=== PATIENT | male | born 1950 | race African-American/Black ===

== ENCOUNTER → 2017-11-15 | Outpatient (CLI) | payer MEDICARE | LOC: CAT 11-12 09:48 | DX: R42 Dizziness and giddiness (principal); R53.1 Weakness ==

== ENCOUNTER 2018-01-01 09:54 | Outpatient (CLI) | payer MEDICARE ==
[~2018-01-01] VITALS: Ht 172.7 cm; Wt 76.9 kg
--- NOTE | ~2018-01-01 | CATHLAB ---
[facility] [place] [address] INVASIVE PROCEDURE REPORT Name: ALLAN LEÓN Room #: 200-I REG [facility]#: [id number] Admission: 01/01/18 Attend Phys: Eliud Clark MD Discharge: Date of : 46 Date of Service: 01/01/18 1612 Report #: [id number] THIS REPORT FOR: //name// APPROVED REPORT Study performed: 01/01/2018 10:20:45 Patient Details Patient Status: Out-Patient Room #: The patient is a 67 year-old male Event Personnel Eliud Clark Radio Installer Automobile, Vinayak Phipps RN, Elizabeth Piedra Sandifer, David Monitor Procedures Performed Left Heart Cath w/or w/o Coronaries [id number] [facility] [address] Place w/wo Plasty Single RCA [id number] Indication Dizziness and vertigo, Dyspnea, Syncope, Positive stress test Risk Factors Hypercholesterolemia, Hypertension Procedure Narrative The Right Groin^ was infiltrated with 1% Lidocaine subcutaneous anesthesia. A PINNACLE 4FR Sheath #[id number] sheath was inserted into the RFA^. Coronary angiography was performed using coronary diagnostic catheters. The right coronary system was accessed and visualized with a JR4 catheter. The left coronary system was accessed and visualized with a JL4 catheter. The left ventricle was accessed and visualized with a PIGTAIL catheter. Left ventricular/Aortic Valve gradient assessed via catheter pullback. Closure device was deployed with a 6 Fr MYNXGRIP 6/7F #[id number]. The patient tolerated the procedure well and there were no complications associated with the procedure. Intraoperative Conscious Sedation Sedation start time: 12.11 Case end Time: 12.44 Fentanyl 50 mcg Versed 1.5 mg Fluoro Time: 8.18 minutes Dose: DAP 6998. cGycm2 876 mGy [facility] [place] [address] INVASIVE PROCEDURE REPORT Name: ALLAN LEÓN Room #: 200-I [facility]#: [id number] Admission: 01/01/18 Attend Phys: Eliud Clark MD Discharge: Date of : 46 Date of Service: 01/01/18 1612 Report #: [id number] Contrast Type and Amount: Omnipaque 185 ml Coronary Angiography The patient's coronary anatomy is right dominant. Diagnostic Cath Left Main Patent vessel, with no flow-limiting lesions. LAD There is mild in the proximal segment. There is 70% stenosis in the mid segment, at the takeoff of the second diagonal artery. Diagonal 1 Moderate size caliber vessel, with no flow-limiting lesions. Diagonal 2 Moderate size caliber vessel, with no flow-limiting lesions. Circumflex Supply 3 OM vessels. There is mild disease in the proximal segment. OM1 Small-caliber vessel, with mild disease proximally. OM2 Patent vessel, with no flow-limiting lesions. OM3 Patent vessel, with no flow-limiting lesions. Right Coronary Moderate size caliber vessel, dominant. There is a severe stenosis in the distal segment, 95%. R PDA Moderate size caliber vessel, patent with no flow-limiting lesions. RPLV Moderate size caliber vessel, patent with no flow-limiting lesions. Left Ventriculography The left ventricle is normal in size with normal contractility. The left ventricular ejection fraction is estimated to be >55%. Hemodynamics The aortic pressure is 145/77 mmHg with a mean of 94 mmHg. The left ventricular pressure is 155/12 mmHg with a mean of mmHg. The left ventricular end diastolic pressure is 29 mmHg. There was no gradient across the aortic valve upon pullback. Pullback from the left ventricle to the aorta revealed no gradient across the aortic valve. PCI Technique Lesion Anticoagulation was achieved with Angiomax. Patient was preloaded with Brillinta. Percutaneous coronary intervention was performed on the distal right coronary artery. The lesion stenosis prior to intervention was 95% with RAMYA 3 flow. A LAUNCHER 6FR JR 4 #[id number] Guide Catheter was used to engage the ostium. A Luge Wire .014 x 182CM #[id number] Interventional Guidewire was used to cross the [facility] [address] [place] [address] INVASIVE PROCEDURE REPORT Name: ALLAN LEÓN Room #: 200-I REG [facility]#: [id number] Admission: 01/01/18 Attend Phys: Eliud Clark MD Discharge: Date of : 46 Date of Service: 01/01/18 1612 Report #: [id number] lesion. BALLOON DILATION A Balloon catheter Euphora RX 2.5 x 12 #[id number] was inserted and inflated up to 8.00atm for 20seconds. STENT DEPLOYMENT A drug-eluting stent RESOLUTE RX 3.0 X 15 #[id number] was inserted and inflated up to 18.00atm for 24seconds. POST STENT DEPLOYMENT BALLOON DILATION A Balloon catheter Euphora NC RX 3.25 x 12 #[id number] was inserted and inflated up to 18.00atm for 20seconds. Final angiography reveals 0 % stenosis with RAMYA 3 flow. Conclusion 1. Successful insertion of a drug-eluting stent into the severe stenosis in the distal RCA. 2. Moderate to severe stenosis in the mid LAD, recommend medical therapy versus staged angioplasty. 3. Normal LV systolic function. 4. Recommend dual platelet therapy and aggressive risk factor management. <ELECTRONICALLY SIGNED> By: Eliud Clark MD 01/01/181611 11 11 Eliud Clark MD /INF
--- NOTE | ~2018-01-01 | D ---
[facility] [place] [address] DISCHARGE SUMMARY Name: ALLAN LEÓN Room #: 200-I [facility] Kwasi.#: [id number] Admission: 01/01/18 Attend Phys: Eliud Clark MD Discharge: Date of : 46 Report #: [id number] THIS REPORT FOR: //name// CC: Eliud Jung DATE OF SERVICE: 01/02/2018 FINAL DIAGNOSES: 1. Coronary artery disease, status post percutaneous coronary intervention. 2. Syncope. 3. Supraventricular tachycardia. 4. Hypertension. 5. Hypercholesterolemia. 6. Gastroesophageal reflux disease. HOSPITAL COURSE: Please see the original H and P for full details. The patient presented with complaints of dyspnea and syncope. A cardiac evaluation revealed SVT and abnormal nuclear stress test. Please see the cardiac catheterization report for full details. On the stress test, he had inferior wall ischemia. Angiography revealed severe occlusion in the distal RCA, supplying a moderate size PDA and posterior lateral branch. Angioplasty was performed with placement of a drug-eluting stent. There is also a 70% stenosis in the mid LAD, recommend medical therapy versus stage angioplasty. He has remained stable overnight. He denies any episodes of chest pains, dyspnea or lightheadedness. He will be discharged home on aspirin, Plavix 75 mg daily, Lipitor 40 mg, lisinopril, Toprol XL 25 mg. He is given instructions for followup in the office. By: 0827 0959 Eliud Clark MD /joseph
--- NOTE | ~2018-01-01 | EKG ---
[place] [address] [address] [place] [address] ELECTROCARDIOGRAM REPORT Name: ALLAN LEÓN Room #: 200-I [facility].#: [id number] Admission: 01/01/18 Attend Phys: Eliud Clark MD Discharge: Date of : 46 Report #: [id number] THIS REPORT FOR: //name// [facility] Test Date: 2018-01-01 Test Time: 13:44:23 Pat Name: ALLAN LEÓN Department: Room: Gender: Communications Department Chair: JOSÉ : 1950 Requested By: Eliud Clark Order Number: [id number] MD: Chidi Howard Measurements Intervals [place] Rate: 46 P: -1 SC: 181 QRS: 21 QRSD: 98 T: 14 QT: 441 QTc: 386 Interpretive Statements Sinus bradycardia Otherwise no significant abnormality No previous ECG available for comparison Electronically Signed On 01-01-2018 15:44:56 CDT by Chidi Howard [email or web address] <ELECTRONICALLY SIGNED> By: Chidi Howard MD, [facility] 01/01/18 1544 1344 1344 Chidi Howard MD, FACC /EPI
--- NOTE | ~2018-01-01 | EKG ---
[address] [place] [address] ELECTROCARDIOGRAM REPORT Name: ALLAN LEÓN Room #: 200-I [facility] M.R.#: [id number] Admission: 01/01/18 Attend Phys: Eliud Clark MD Discharge: Date of : 46 Report #: [id number] THIS REPORT FOR: //name// [facility] Test Date: 2018-01-02 Test Time: 06:00:41 Pat Name: ALLAN LEÓN Department: Room: 200 I Gender: M Booking Agent: TABBY : 1950 Requested By: Eliud Clark Order Number: [id number] MD: Chidi Howard Measurements Intervals [place] Rate: 55 P: 17 [place]: 194 QRS: 38 QRSD: 85 T: 13 QT: 420 QTc: 402 Interpretive Statements Sinus bradycardia Otherwise normal tracing Compared to ECG 01/01/2018 13:44:23 No significant change was found Electronically Signed On 01-02-2018 8:02:22 CDT by Chidi Howard [email or web address] <ELECTRONICALLY SIGNED> By: Chidi Howard MD, [facility] 01/02/18 0802 06 9 Chidi Howard MD, FACC /EPI
[2018-01-01] MEDS ORDERED: ALLOPURINOL 10100 M1 PO (10:30)
[2018-01-01] MEDS ORDERED: TOPROL XL25 MG PO (10:31)
[2018-01-01] MEDS ORDERED: PREVACID15 MG PO (10:31)
[2018-01-01] MEDS ORDERED: LISINOPRIL10 MG PO (10:32)
[2018-01-01] MEDS ORDERED: ASPIR 8181 MG PO (10:32)
[2018-01-01 10:41] VITALS: BP 146/72
[2018-01-01 10:43] LABS: HEMATOCRIT 37.7 % (42.0-52.0); HEMOGLOBIN 12.9 gm/dL (14.0-18.0); MCH 31.7 pg (26.0-34.0); MCHC 34.2 g/dL (28.0-37.0); MCV 92.8 fL (80.0-100.0); RBC 4.06 mil/uL (4.50-6.00); RDW 14.1 % (10.5-14.5); WBC 4.5 thou/uL (4.0-11.0)
[2018-01-01 10:54] LABS: CALCIUM 9.1 mg/dL (8.5-10.1); CREATININE 1.2 mg/dL (0.7-1.3); POTASSIUM 3.7 mmol/L (3.5-5.1)
[2018-01-01 13:20] VITALS: BP 174/81
[2018-01-01 19:10] VITALS: BP 131/84
[2018-01-01 22:55] VITALS: BP 130/79
[2018-01-02 02:50] LABS: HEMATOCRIT 33.2 % (42.0-52.0); HEMOGLOBIN 11.7 gm/dL (14.0-18.0); MCH 32.3 pg (26.0-34.0); MCHC 35.1 g/dL (28.0-37.0); MCV 92.1 fL (80.0-100.0); RBC 3.61 mil/uL (4.50-6.00); RDW 13.8 % (10.5-14.5)
[2018-01-02 03:03] LABS: ALBUMIN 2.6 g/dL (3.4-5.0); CALCIUM 8.1 mg/dL (8.5-10.1); CREATININE 1.1 mg/dL (0.7-1.3); POTASSIUM 3.4 mmol/L (3.5-5.1); TOTAL BILIRUBIN 0.6 mg/dL (<0.1-1.0); TOTAL PROTEIN 5.8 g/dL (6.4-8.2); TROPONIN-I 0.08 ng/mL (<0.06)
[2018-01-02 03:58] VITALS: BP 161/91
[2018-01-02 07:04] VITALS: BP 139/70
[2018-01-02] MEDS ORDERED: CLOPIDOGREL75 MG PO (08:31)
[2018-01-02] MEDS ORDERED: ATORVASTATIN CA80 MG PO (08:31)
[2018-01-02 09:10] VITALS: BP 139/70
[2018-01-02 09:50] VITALS: BP 139/70
== END 2018-01-02 11:14 | disposition home or self-care (01) ==
LOC: CATH 09:54 → 2N 13:17 → ENTRNSPT 01-02 11:01 → EDTRNSPTSTS 01-02 11:02 → CATH 01-02 11:14
PROVIDERS: Internal Medicine Cardiovascular Disease
DX: I25.10 Atherosclerotic heart disease of native coronary artery without angina pectoris (principal); K21.9 Gastro-esophageal reflux disease without esophagitis; M10.9 Gout, unspecified; E78.4 Other hyperlipidemia; I10 Essential (primary) hypertension; Z92.3 Personal history of irradiation; Z85.46 Personal history of malignant neoplasm of prostate; Z79.899 Other long term (current) drug therapy; R94.39 Abnormal result of other cardiovascular function study
CPT/HCPCS: 10081

== ENCOUNTER 2018-02-06 08:07 | Observation (INO) | payer MEDICARE ==
[~2018-02-06] VITALS: Ht 170.2 cm; Wt 81.1 kg
--- NOTE | ~2018-02-06 | EKG ---
[place] [address] [address] [facility] [place] [address] ELECTROCARDIOGRAM REPORT Name: ALLAN LEÓN Room #: 201-P [facility] M.R.#: [id number] Admission: 02/06/18 Attend Phys: Eliud Clark MD Discharge: Date of : 46 Report #: [id number] THIS REPORT FOR: //name// [facility] Test Date: 2018-02-06 Test Time: 08:51:38 Pat Name: ALLAN LEÓN Department: Room: Gender: Addiction Professional: : 1950 Requested By: Eliud Clark Order Number: [id number] MD: Chidi Howard Measurements Intervals [place] Rate: 69 P: 44 [place]: 187 QRS: 18 QRSD: 91 T: 16 QT: 377 QTc: 404 Interpretive Statements Sinus rhythm No significant abnormality Compared to ECG 01/02/2018 06:00:41 Sinus bradycardia no longer present Electronically Signed On 02-06-2018 16:51:19 CDT by Chidi Howard [email or web address] <ELECTRONICALLY SIGNED> By: Chidi Howard MD, [facility] 02/06/18 1651 0851 0851 Chidi Howard MD, FACC /EPI
--- NOTE | ~2018-02-06 | EKG ---
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
--- NOTE | ~2018-02-06 | D ---
[facility] [place] [address] DISCHARGE SUMMARY Name: ALLAN LEÓN Room #: 201-P [facility] Lanza#: [id number] Admission: 02/06/18 Attend Phys: Eliud Clark MD Discharge: 02/07/18 Date of : 46 Report #: [id number] THIS REPORT FOR: //name// CC: Eliud Jung DATE OF SERVICE: 02/07/2018 FINAL DIAGNOSES: 1. Coronary artery disease, status post stent to the left anterior descending. 2. Hypertension. 3. Hyperlipidemia. 4. Edema. HOSPITAL COURSE: Please see the original H and P for full details. He initially presented with his anginal equivalent, lightheadedness, and near syncope with exertion. He underwent stent insertion to the RCA recently. He was found to have a severe occlusion of the mid LAD, a strategy of medical therapy was recommended. This vessel was a small to moderate size caliber and size. However, he had an episode of his anginal equivalent, lightheadedness, diaphoresis and fatigue while walking on his job. He had to rest for symptom relief. Please see the cardiac catheterization report for full details. The stent in the RCA is widely patent. He underwent placement of a 2.0 mm drug-eluting stent into the mid LAD occlusion. He remains clinically stable overnight. He will continue on aspirin, atorvastatin, Plavix 75 mg, lisinopril, metoprolol and Dyazide. He is instructed to follow up in the office in a few weeks. <ELECTRONICALLY SIGNED> By: Eliud Clark MD 02/10/18 0802 0816 0854 Eliud Clark MD /nt
--- NOTE | ~2018-02-06 | CATHLAB ---
[facility] [address] [place] [address] INVASIVE PROCEDURE REPORT Name: ALLAN LEÓN Room #: 201-P [facility] IN M.R.#: [id number] Admission: 02/06/18 Attend Phys: Eliud Clark MD Discharge: Date of : 46 Date of Service: 02/06/18 1134 Report #: [id number] THIS REPORT FOR: //name// APPROVED REPORT Study performed: 02/06/2018 09:28:47 Patient Details Patient Status: Out-Patient Room #: The patient is a 67 year-old male Event Personnel Eliud Clark Correctional Captain, Kody Erickson RN RN, Remedios Gurrola RN RN, Katelin Dickson Mahmood, Amber Scrub, David Morales Monitor Procedures Performed Coronary Angiography Only [id number] [facility] Place w/wo Plasty Single LAD 294604 Indication Dizziness and vertigo, Syncope, Anginal equivalent is lightheadedness, near syncope. Risk Factors Hypercholesterolemia, Coronary Artery DiseaseHypertension Previous Procedures/Diagnoses Previous PCI Procedure Narrative The Right Groin^ was infiltrated with 1% Lidocaine subcutaneous anesthesia. A PINNACLE 6FR Sheath #[id number] sheath was inserted into the RFA^. Coronary angiography was performed using coronary diagnostic catheters. The left coronary system was accessed and visualized with a JR4 catheter. Closure device was deployed with a 6 Fr MYNXGRIP 6/7F #[id number]. The patient tolerated the procedure well and there were no complications associated with the procedure. There was no hematoma. Intraoperative Conscious Sedation Sedation start time: 10.05 Case end Time: 10.55 Fentanyl 50 mcg Versed 1.5 mg [facility] [address] [place] [address] INVASIVE PROCEDURE REPORT Name: ALLAN LEÓN Room #: 201-P [facility]#: [id number] Admission: 02/06/18 Attend Phys: Eliud Clark MD Discharge: Date of : 46 Date of Service: 02/06/18 1134 Report #: [id number] Fluoro Time: 11.03 minutes Dose: DAP 8508 cGycm2 1271 mGy Contrast Type and Amount: Visipaque 200 ml Coronary Angiography The patient's coronary anatomy is right dominant. Diagnostic Cath LAD There is a severe occlusion in the mid segment of the LAD, 80%. Right Coronary The RCA is a dominant vessel. There is a patent stent in the distal RCA. Hemodynamics The aortic pressure is 104/55 mmHg with a mean of 72 mmHg. PCI Technique Lesion Anticoagulation was achieved with Angiomax. Patient was preloaded with Plavix. Percutaneous coronary intervention was performed on the mid left anterior descending artery segment. The lesion stenosis prior to intervention was 80% with RAMAY 3 flow. A Objective LogisticsTA 6FR XB 3.5 #542658 Guide Catheter was used to engage the ostium. A Luge Wire .014 x 182CM #[id number] Interventional Guidewire was used to cross the lesion. BALLOON DILATION A Balloon catheter Euphora RX 2.0 x12 #[id number] was inserted and inflated up to 8.00atm for 16seconds. Additional Inflation: 8.00atm for 11seconds. Additional Inflation: 8.00atm for 20seconds. STENT DEPLOYMENT A drug-eluting stent RESOLUTE NIKITA RX 2.0 X 15 # was inserted and inflated up to 14.00atm for 22seconds. POST STENT DEPLOYMENT BALLOON DILATION A Balloon catheter Euphora NC RX 2.25 x 6 #[id number] was inserted and inflated up to 14.00atm for 16seconds. Additional Inflation: 15.00atm for 21seconds. Final angiography reveals 5 % stenosis with RAMYA 3 flow. Conclusion 1. Successful insertion of a drug-eluting stent into the mid LAD stenosis. [facility] [address] [place] [address] INVASIVE PROCEDURE REPORT Name: ALLAN LEÓN Room #: 201-P [facility].#: [id number] Admission: 02/06/18 Attend Phys: Eliud Clark MD Discharge: Date of : 46 Date of Service: 02/06/18 1134 Report #: [id number] 2. Patent stent in the distal RCA. 3. Recommend dual antiplatelet therapy. <ELECTRONICALLY SIGNED> By: Eliud Clark MD 02/06/18 1134 1134 1134 Eliud Clark MD /INF
--- NOTE | ~2018-02-06 | EKG ---
[address] [address] ELECTROCARDIOGRAM REPORT Name: ALLAN LEÓN Room #: 201-P [facility] M.R.#: [id number] Admission: 02/06/18 Attend Phys: Eliud Clark MD Discharge: Date of : 46 Report #: [id number] THIS REPORT FOR: //name// 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: Galina RIVERA : 1950 Requested By: Eliud Clark Order Number: [id number] MD: Chidi Howard Measurements Intervals [place] Rate: 76 P: 56 [place]: 210 QRS: 5 QRSD: 94 T: 15 QT: 367 QTc: 413 Interpretive Statements Sinus rhythm No significant abnormality Compared to ECG 01/02/2018 06:00:41 No significant change was found Electronically Signed On 02-06-2018 16:58:54 CDT by Chidi Howard [email or web address] <ELECTRONICALLY SIGNED> By: Chidi Howard MD, [facility] 02/06/18 1658 1340 1340 Chidi Howard MD, FACC /EPI
[~2018-02-06 08:07] MED LIST: ALLOPURINOL 10100 M1 PO; ASPIR 8181 MG PO; ATORVASTATIN CA80 MG PO; CLOPIDOGREL75 MG PO; LISINOPRIL10 MG PO; PREVACID15 MG PO; TOPROL XL25 MG PO
[2018-02-06 08:37] VITALS: BP 124/61
[2018-02-06 08:55] LABS: HEMATOCRIT 38.6 % (42.0-52.0); HEMOGLOBIN 13.3 gm/dL (14.0-18.0); MCH 31.4 pg (26.0-34.0); MCHC 34.5 g/dL (28.0-37.0); MCV 91.2 fL (80.0-100.0); RBC 4.23 mil/uL (4.50-6.00); RDW 13.3 % (10.5-14.5); WBC 4.9 thou/uL (4.0-11.0)
[2018-02-06 09:05] LABS: CALCIUM 9.6 mg/dL (8.5-10.1); CREATININE 1.5 mg/dL (0.7-1.3); POTASSIUM 4.2 mmol/L (3.5-5.1)
[2018-02-06 09:06] LABS: PROTIME 10.2 Seconds (9.3-11.4)
[2018-02-06 11:17] VITALS: BP 114/66
[2018-02-06 15:00] VITALS: BP 106/64
[2018-02-06 19:58] VITALS: BP 224/69
[2018-02-06 23:35] VITALS: BP 116/61
[2018-02-07 03:34] VITALS: BP 110/72; BP 135/75
[2018-02-07 04:36] LABS: HEMATOCRIT 33.9 % (42.0-52.0); HEMOGLOBIN 11.9 gm/dL (14.0-18.0); MCH 31.4 pg (26.0-34.0); MCV 89.5 fL (80.0-100.0); RBC 3.79 mil/uL (4.50-6.00); RDW 12.9 % (10.5-14.5); WBC 5.2 thou/uL (4.0-11.0)
[2018-02-07 05:08] LABS: ALBUMIN 3.4 g/dL (3.4-5.0); CREATININE 1.2 mg/dL (0.7-1.3); POTASSIUM 4.3 mmol/L (3.5-5.1); TOTAL BILIRUBIN 0.7 mg/dL (<0.1-1.0); TOTAL PROTEIN 7.3 g/dL (6.4-8.2); TROPONIN-I 0.08 ng/mL (<0.06)
[2018-02-07 07:21] VITALS: BP 110/62
[2018-02-07 10:06] VITALS: BP 110/62
== END 2018-02-07 10:00 | disposition home or self-care (01) ==
LOC: CATH 08:07 → 2N 08:54 → CATH 08:54 → 2N 08:54 → CATH 09:02 → 2N 02-07 10:00 → ENTRNSPT 02-07 11:10 → EDTRNSPTSTS 02-07 11:12
PROVIDERS: Internal Medicine Cardiovascular Disease
DX: I25.10 Atherosclerotic heart disease of native coronary artery without angina pectoris (principal); I47.1 Supraventricular tachycardia; I10 Essential (primary) hypertension; K21.9 Gastro-esophageal reflux disease without esophagitis; I99.9 Unspecified disorder of circulatory system; M10.9 Gout, unspecified; R60.9 Edema, unspecified; E78.00 Pure hypercholesterolemia, unspecified; Z79.890 Hormone replacement therapy; Z98.890 Other specified postprocedural states; Z72.89 Other problems related to lifestyle

== ENCOUNTER → 2020-03-10 | Outpatient (CLI) | payer MEDICARE | LOC: SJCVC 13:51 | PROVIDERS: ATTEND Internal Medicine Cardiovascular Disease | DX: I25.10 Atherosclerotic heart disease of native coronary artery without angina pectoris (principal); R55 Syncope and collapse; I47.1 Supraventricular tachycardia; I10 Essential (primary) hypertension; E78.00 Pure hypercholesterolemia, unspecified; Z79.899 Other long term (current) drug therapy ==

== ENCOUNTER → 2020-11-04 | Outpatient (CLI) | payer MEDICARE | LOC: SJCVC 10:29 | PROVIDERS: ATTEND Internal Medicine Cardiovascular Disease | DX: I10 Essential (primary) hypertension (principal); I25.10 Atherosclerotic heart disease of native coronary artery without angina pectoris; I47.1 Supraventricular tachycardia; E78.00 Pure hypercholesterolemia, unspecified; R55 Syncope and collapse; M10.9 Gout, unspecified; K21.9 Gastro-esophageal reflux disease without esophagitis; Z98.890 Other specified postprocedural states; Z98.61 Coronary angioplasty status; Z79.82 Long term (current) use of aspirin; Z79.899 Other long term (current) drug therapy ==